=== PATIENT | female | born 1975 | race Caucasian/White ===

== ENCOUNTER 2024-02-21 13:58 | Outpatient (CLI) | payer OTHER | END 2024-02-21 13:59 | disposition home or self-care (01) | LOC: BICMAMMO 13:58 | PROVIDERS: ATTEND Family Medicine Sports Medicine | DX: N63.25 Unspecified lump in the left breast, overlapping quadrants (principal); N64.4 Mastodynia; R92.332 Mammographic heterogeneous density, left breast; Z98.82 Breast implant status ==

== ENCOUNTER 2024-09-24 14:54 | Outpatient (CLI) | payer BC | END 2024-09-24 14:55 | disposition home or self-care (01) | LOC: BICMAMMO 14:54 | PROVIDERS: ATTEND Family Medicine Sports Medicine | DX: R92.8 Other abnormal and inconclusive findings on diagnostic imaging of breast (principal) | CPT/HCPCS: 76642; 77066; G0279 ==

== ENCOUNTER 2025-03-25 15:53 | Outpatient (CLI) | payer OTHER | END 2025-03-25 15:54 | disposition home or self-care (01) | LOC: BICRAD 15:53 | PROVIDERS: ATTEND Family Medicine Sports Medicine | DX: M25.511 Pain in right shoulder (principal) ==